=== PATIENT | male | born 1965 | race Asian ===

== ENCOUNTER 2018-11-14 04:35 | Emergency (ER) | payer BC ==
[2018-11-14] MEDS ORDERED: NS 1,000 ML IV ONE ×2 (04:44)
--- NOTE | 2018-11-14 04:47 | EDPHY ---
H & P Time Seen by Provider: 11/14/18 04:45 HPI/ROS: HPI CHIEF COMPLAINT: Diarrhea, syncope. HISTORY OF PRESENT ILLNESS: 52-year-old male, otherwise healthy without any significant medical history presents emergency room with diarrhea. Patient states that he just flew back from [place], went to sleep tonight, developed abdominal cramping rain to the bathroom had large amount of diarrhea. He states he had very severe cramps. The cramps have now resolved. He had no vomiting. No fever. Denies chest pain or shortness of breath. Over the cramps are severe in his having bad diarrhea that he had a syncopal episode. He now arrives to the emergency room by EMS in no acute distress. He denies chest pain or shortness of breath. He is unsure if he ate something bad. Past Medical History: Denies significant medical history Past Surgical History: Denies significant surgical history Social History: Denies drugs alcohol tobacco Family History: Noncontributory ROS REVIEW OF SYSTEMS: 10 Systems were reviewed and negative with the exception of the elements mentioned in the history of present illness. Exam Constitutional triage nursing summary reviewed, vital signs reviewed, awake/ alert. Vital signs stable. Eyes normal conjunctivae and sclera, EOMI, PERRLA. HENT normal inspection, atraumatic, moist mucus membranes, no epistaxis, neck supple/ no meningismus, no raccoon eyes. Respiratory clear to auscultation bilaterally, normal breath sounds, no respiratory distress, no wheezing. Cardiovascular rate normal, regular rhythm, no murmur, no edema, distal pulses normal. Gastrointestinal soft, non-tender, no rebound, no guarding, normal bowel sounds, no distension, no pulsatile mass. Genitourinary no CVA tenderness. Musculoskeletal no midline vertebral tenderness, full range of motion, no calf swelling, no tenderness of extremities, no meningismus, good pulses, neurovascularly intact. Skin pink, warm, & dry, no rash, skin atraumatic. Neurologic awake, alert and oriented x 3, AAOx3, moves all 4 extremities equally, motor intact, sensory intact, CN II-XII intact, normal cerebellar, normal vision, normal speech. Psychiatric normal mood/affect. Heme/Lymph/Immune no lymphadenopathy. Differential Diagnosis: Differential diagnosis includes but is not limited to and in no particular order: Bowel obstruction, appendicitis, gallbladder disease, diverticulitis, colitis, enteritis, perforated viscus, gastritis, GERD , esophagitis, urinary tract infection, pyelonephritis, kidney stones also including vasovagal syncope, dehydration, acute GI illness, food-borne illness, Medical Decision Making: Plan for this patient IV establishment IV fluid bolus 2 L normal saline, basic blood work, lactic acid, EKG cause syncope, troponin, and re-evaluate. At this time is abdomen is soft nontender. I do not believe we need to perform CT scan. Re-evaluation: EKG interpretation by me on record in [employer] system. Impression time of EKG 4:57 a.m., sinus rhythm rate of 65, no signs of acute ischemia no ST elevation no ST depression. Trop 0.01. Labs reviewed. Patient re-evaluated 625 feeling better after IV fluids. 0628: On re-examination patient resting comfortably. Re-examination abdomen is soft nontender. He is not vomiting. The patient wants to go home. His abdomen is soft nontender. He is not vomiting. Return precautions discussed with him he understands return emergency room if develops worsening abdominal pain, fever, vomiting, not doing well. Patient's lab work is unremarkable no high white blood cell count. Lactic acid trended down after IV fluids. Patient resting comfortably no acute distress. He would like to go home. I did reexamine his abdomen at 7:00 a.m. Abdomen soft nontender. He has not had any further diarrhea or vomiting or fever here. Return precautions discussed with patient return emergency room if worsening abdominal pain, fever, vomiting. I did not CT scan the patient as he had diarrhea, is abdomen is soft nontender. Stool studies ordered. Source: Patient, EMS - Personal History Tetanus Vaccine Date: 2011 - Medical/Surgical History Hx Asthma: No Hx Chronic Respiratory Disease: No Hx Diabetes: No Hx Cardiac Disease: No Hx Renal Disease: No Hx Cirrhosis: No Hx Alcoholism: No Hx HIV/AIDS: No Hx Splenectomy or Spleen Trauma: No Other PMH: right shoulder sx - Social History Smoking Status: Never smoked Constitutional: Initial Vital Signs Temperature (C) 36.8 C 11/14/18 04:37 Heart Rate 66 11/14/18 04:37 Respiratory Rate 18 11/14/18 04:37 Blood Pressure 121/82 H 11/14/18 04:37 O2 Sat (%) 98 11/14/18 04:37 O2 Delivery Mode Room Air Allergies/Adverse Reactions: No Known Allergies Allergy (Verified 11/14/18 04:47) Home Medications: Medication Instructions Recorded NK [No Known Home Meds] 05/31/14 Medical Decision Making - Data Points Laboratory Results: Laboratory Results 11/14/18 04:40 11/14/18 04:40 11/14/18 11/14/18 11/14/18 06:30 05:43 05:00 WBC RBC Hgb Hct MCV MCH MCHC RDW Plt Count MPV Neut % (Auto) Lymph % (Auto) Anderson % (Auto) Eos % (Auto) Baso % (Auto) Nucleat RBC Rel Count Absolute Neuts (auto) Absolute Lymphs (auto) Absolute Monos (auto) Absolute Eos (auto) Absolute Basos (auto) Absolute Nucleated RBC Immature Gran % Immature Gran # VBG Lactic Acid 0.9 mmol/L mmol/L (0.7-2.1) Sodium Potassium Chloride Carbon Dioxide Anion Gap BUN Creatinine Estimated GFR Glucose Calcium Total Bilirubin Conjugated Bilirubin Unconjugated Bilirubin AST ALT Alkaline Phosphatase POC Troponin I 0.01 ng/mL ng/mL (0.00-0.08) Total Protein Albumin Lipase Urine Color YELLOW Urine Appearance CLEAR Urine pH 6.0 (5.0-7.5) Ur Specific [place] 1.016 (1.002-1.030) Urine Protein NEGATIVE (NEGATIVE) Urine Ketones NEGATIVE (NEGATIVE) Urine Blood 1+ H (NEGATIVE) Urine Nitrate NEGATIVE (NEGATIVE) Urine Bilirubin NEGATIVE (NEGATIVE) Urine Urobilinogen NEGATIVE EU EU (0.2-1.0) Ur Leukocyte Esterase NEGATIVE (NEGATIVE) Urine RBC 1-3 /hpf /hpf (0-3) Urine WBC 1-3 /hpf /hpf (0-3) Ur Epithelial Cells TRACE /lpf /lpf (NONE-1+) Urine Mucus TRACE /lpf /lpf (NONE-1+) Urine Glucose NEGATIVE (NEGATIVE) 11/14/18 11/14/18 11/14/18 04:40 04:40 04:40 WBC 8.96 10^3/uL 10^3/uL (3.80-9.50) RBC 5.01 10^6/uL 10^6/uL (4.40-6.38) Hgb 14.6 g/dL g/dL (13.7-17.5) Hct 42.1 % % (40.0-51.0) MCV 84.0 fL fL (81.5-99.8) MCH 29.1 pg pg (27.9-34.1) MCHC 34.7 g/dL g/dL (32.4-36.7) RDW 12.5 % % (11.5-15.2) Plt Count 126 10^3/uL L 10^3/uL (150-400) MPV 12.1 fL H fL (8.7-11.7) Neut % (Auto) 54.3 % % (39.3-74.2) Lymph % (Auto) 34.9 % % (15.0-45.0) Anderson % (Auto) 7.9 % % (4.5-13.0) Eos % (Auto) 1.7 % % (0.6-7.6) Baso % (Auto) 0.6 % % (0.3-1.7) Nucleat RBC Rel Count 0.0 % % (0.0-0.2) Absolute Neuts (auto) 4.87 10^3/uL 10^3/uL (1.70-6.50) Absolute Lymphs (auto) 3.13 10^3/uL H 10^3/uL (1.00-3.00) Absolute Monos (auto) 0.71 10^3/uL 10^3/uL (0.30-0.80) Absolute Eos (auto) 0.15 10^3/uL 10^3/uL (0.03-0.40) Absolute Basos (auto) 0.05 10^3/uL 10^3/uL (0.02-0.10) Absolute Nucleated RBC 0.00 10^3/uL 10^3/uL (0-0.01) Immature Gran % 0.6 % % (0.0-1.1) Immature Gran # 0.05 10^3/uL 10^3/uL (0.00-0.10) VBG Lactic Acid 2.5 mmol/L H mmol/L (0.7-2.1) Sodium 138 mEq/L mEq/L (135-145) Potassium 3.9 mEq/L mEq/L (3.5-5.2) Chloride 105 mEq/L mEq/L (97-110) Carbon Dioxide 23 mEq/l mEq/l (22-31) Anion Gap 10 mEq/L mEq/L (6-14) BUN 21 mg/dL mg/dL (7-23) Creatinine 1.0 mg/dL mg/dL (0.7-1.3) Estimated GFR > 60 Glucose 124 mg/dL H mg/dL (70-100) Calcium 9.2 mg/dL mg/dL (8.5-10.4) Total Bilirubin 0.7 mg/dL mg/dL (0.1-1.4) Conjugated Bilirubin 0.4 mg/dL mg/dL (0.0-0.5) Unconjugated Bilirubin 0.3 mg/dL mg/dL (0.0-1.1) AST 30 IU/L IU/L (17-59) ALT 54 IU/L IU/L (21-72) Alkaline Phosphatase 85 IU/L IU/L (38-126) POC Troponin I Total Protein 6.9 g/dL g/dL (6.3-8.2) Albumin 4.2 g/dL g/dL (3.5-5.0) Lipase 150 IU/L IU/L (23-300) Urine Color Urine Appearance Urine pH Ur Specific [place] Urine Protein Urine Ketones Urine Blood Urine Nitrate Urine Bilirubin Urine Urobilinogen Ur Leukocyte Esterase Urine RBC Urine WBC Ur Epithelial Cells Urine Mucus Urine Glucose Medications Given: Discontinued Medications Sodium Chloride (Ns) 1,000 mls @ 0 mls/hr IV EDNOW ONE; Wide Open PRN Reason: Protocol Stop: 11/14/18 04:45 Last Admin: 11/14/18 04:48 Dose: 1,000 mls Sodium Chloride (Ns) 1,000 mls @ 0 mls/hr IV EDNOW ONE; Wide Open PRN Reason: Protocol Stop: 11/14/18 04:45 Last Admin: 11/14/18 04:49 Dose: 1,000 mls Point of Care Test Results: Chemistry 11/14/18 05:00 POC Troponin I 0.01 ng/mL ng/mL (0.00-0.08) Departure - Departure Disposition: Home, Routine, Self-Care Clinical Impression: Diarrhea Qualifiers: Diarrhea type: unspecified type Qualified Code(s): R19.7 - Diarrhea, unspecified Condition: Good Instructions: Dehydration (ED), Acute Diarrhea (ED) Additional Instructions: 1. [place] diet. 2. Stay well-hydrated and rest today. 3. Return to the emergency room if worsening abdominal pain, fever, vomiting. Referrals: Patient,NotPresent [Unknown] - As per Instructions
[2018-11-14 05:01] LABS: PLATELET COUNT 126 10^3/uL (150-400)
[2018-11-14 07:06] VITALS: BP 128/76
--- NOTE | 2018-11-15 07:34 | CPEKG ---
Test Reason : OPEN Blood Pressure : / mmHG Vent. Rate : 065 BPM Atrial Rate : 065 BPM P-R Int : 212 ms QRS Dur : 083 ms QT Int : 412 ms P-R-T Axes : 083 014 028 degrees QTc Int : 429 ms Sinus rhythm Prolonged OH interval Confirmed by Theo Rubio ([id number]) on 11/15/2018 7:34:02 AM Referred By: Theo Rubio Confirmed By:Theo Rubio
== END 2018-11-14 07:05 | disposition home or self-care (01) ==
LOC: EDUNIT#
DX: R19.7 Diarrhea, unspecified (principal); E86.9 Volume depletion, unspecified
CPT/HCPCS: 84484-ER